=== PATIENT | male | born 1960 | race Hispanic/Latino ===

== ENCOUNTER 2022-12-24 08:05 | Emergency (ER) | payer BC ==
--- NOTE | 2022-12-24 08:27 | EDPHYS ---
Physician Documentation [facility] Name: Alvarado Crow Age: 62 yrs Sex: Male : 1960 Arrival Date: 12/24/2022 Time: 08:07 Bed 9 Private MD: ED Physician Zhen Clark HPI: 12/24 08:20 This 62 yrs old Male presents to ER via Ambulatory with complaints of bs3 Numbness Of Face. 08:20 The patient's problem is reported as a facial droop, on right. Onset: The bs3 symptoms/episode began/occurred acutely. Duration: The episode is continuous. Context:. 62 y m hx of dm, htn pw right facial numbness, and weakness on right side of his mouth, noticed starting yesterday, but got worse today. He feels like he can't close his eye as tight and water is drippling out of his mouth. He has a hx of this happening remotely. NO fever or chills, difficulty breathing or swallwing. . Historical: - Allergies: 08:10 No Known Allergies; iw - PMHx: 08:11 Diabetes mellitus; iw - Immunization history:: Adult Immunizations unknown. - Social history:: Patient/guardian denies using Smoking status: unknown. ROS: 08:20 Constitutional: Negative for fever, chills bs3 08:20 All other systems are negative. Exam: 08:20 Constitutional: This is a well developed, well nourished patient who is awake, alert, bs3 and in no acute distress. Head/Face: Normocephalic, atraumatic. Eyes: Pupils equal round and reactive to light, extra-ocular motions intact. Lids and lashes normal. ENT: mmm, no posterior phyarngeal erythema Neck: Trachea midline, no thyromegaly, no neck stiffness Chest/axilla: Normal chest wall appearance and motion. Nontender with no deformity. No lesions are appreciated. Cardiovascular: Regular rate and rhythm with a normal S1 and S2. symmetric pulses in upper extremities Respiratory: Lungs have equal breath sounds bilaterally, clear to auscultation, no respiratory distress Abdomen/GI: Soft, non-tender, no rebound or guarding MS/ Extremity: Pulses equal, no cyanosis. Neurovascular intact. Full, normal range of motion. Neuro: Awake and alert, GCS 15, oriented to person, place, time, and situation. Decreased strength to the right side of his face, with facial droop, he has decreased ability to furrow his brow on this side, sensation is intact, this does not spare his forehead. He has normal strength in upper lower extremities, he can close his right eye but it is slightly weaker than the left. Psych: Awake, alert, with orientation to person, place and time. Behavior, mood, and affect are within normal limits. 08:28 CT study not indicated or reported. Reason for not performing CT: not conistent bs3 symptoms with CVA Vital Signs: 08:11 BP 182 / 73; Pulse 69; Resp 16; Temp 97.1; iw 08:38 BP 161 / 82; Pulse 61; Resp 18; Pulse Ox 100% on R/A; eh3 MDM: 08:20 Patient medically screened. bs3 08:20 Differential diagnosis: CVA, paralysis, metabolic disorder. Data reviewed: vital signs, bs3 nurses notes. I considered the following discharge prescriptions or medication management in the emergency department will give antiviral, considered tick paralysis and doxy but no exposure to ticks. . Test considered but Not performed: CT: considered ct, stroke workup but this is likely idiopathic facial paralysis as his symptoms do not spare forehead (involve it) and he has no other deficits. Administered Medications: 08:37 Drug: predniSONE 60 mg Route: PO; 3 08:46 Follow up: Response: Medication administered at discharge. 3 08:37 Drug: valACYclovir 1000 mg Route: PO; 3 08:46 Follow up: Response: Medication administered at discharge. 3 Disposition Summary: 12/24/22 08:27 Discharge Ordered Location: Home bs3 Problem: new bs3 Condition: Stable bs3 Diagnosis - Eid's palsy bs3 Followup: bs3 - With: Private Physician - When: 1 week - Reason: Re-evaluation by your physician Discharge Instructions: - Discharge Summary Sheet bs3 - Eid Palsy, Adult bs3 Forms: - Medication Reconciliation Form bs3 - Work release form eh3 - Thank You Letter bs3 - Antibiotic Education bs3 - Prescription Opioid Use bs3 Prescriptions: - valacyclovir 1 gram Oral tablet - take 1 tablet by ORAL route 3 times per day for 7 days; 21 tablet; Refills: 0, bs3 Product Selection Permitted - Prednisone 20 mg Oral Tablet - take 3 tablets by ORAL route once daily for 7 days; 21 tablet; Refills: 0, bs3 Product Selection Permitted Signatures: Angelina Wells RN RN iw Soni Kinciad RN RN eh3 Zhen Clark MD MD bs3
--- NOTE | 2022-12-24 08:27 | ER ---
Nurse's Notes [facility] Name: Alvarado Crow Age: 62 yrs Sex: Male : 1960 Arrival Date: 12/24/2022 Time: 08:07 Bed 9 Private MD: Diagnosis: Eid's palsy Presentation: 12/24 08:09 Chief complaint: Patient states: yesterday he noticed numbness in right side of mouth, iw this morning he noticed some slurred speech and facial droop on right side. Coronavirus screen: At this time, the client does not indicate any symptoms associated with coronavirus-19. Ebola Screen: Patient negative for fever greater than or equal to 101.5 degrees Fahrenheit, and additional compatible Ebola Virus Disease symptoms Patient denies exposure to infectious person. Patient denies travel to an Ebola-affected area in the 21 days before illness onset. No symptoms or risks identified at this time. Initial Sepsis Screen: Does the patient meet any 2 criteria? No. Patient's initial sepsis screen is negative. Does the patient have a suspected source of infection? No. Patient's initial sepsis screen is negative. Risk Assessment: Do you want to hurt yourself or someone else? Patient reports no desire to harm self or others. Onset of symptoms was December 23, 2022. 08:09 Method Of Arrival: Ambulatory iw 08:09 Acuity: PADDY 3 iw Triage Assessment: 08:39 General: Appears in no apparent distress. comfortable, Behavior is calm, cooperative, eh3 appropriate for age. Historical: - Allergies: 08:10 No Known Allergies; iw - PMHx: 08:11 Diabetes mellitus; iw - Immunization history:: Adult Immunizations unknown. - Social history:: Patient/guardian denies using Smoking status: unknown. Screenin:38 [facility] ED Fall Risk Assessment (Adult) Score/Fall Risk Level 0 - 2 = Low Risk. Abuse eh3 screen: Denies threats or abuse. Denies injuries from another. Nutritional screening: No deficits noted. Tuberculosis screening: No symptoms or risk factors identified. Assessment: 08:38 General: Appears in no apparent distress. comfortable. General: Behavior is calm, eh3 cooperative, appropriate for age. Pain: Denies pain. Neuro: Level of Consciousness is awake, alert, obeys commands, Oriented to person, place, time, situation. Neuro: Moves all extremities. Gait is steady, Speech is normal, Facial droop on right, Pupils are PERRLA, Intact. Cardiovascular: Capillary refill < 3 seconds Patient's skin is warm and dry. Respiratory: Airway is patent Respiratory effort is even, unlabored, Respiratory pattern is regular, symmetrical. GI: No signs and/or symptoms were reported involving the gastrointestinal system. Abdomen is round non-distended. : No signs and/or symptoms were reported regarding the genitourinary system. EENT: No signs and/or symptoms were reported regarding the EENT system. Derm: No signs and/or symptoms reported regarding the dermatologic system. Skin is pink, warm \T\ dry. Musculoskeletal: No signs and/or symptoms reported regarding the musculoskeletal system. Circulation, motion, and sensation intact. Range of motion: intact in all extremities. Vital Signs: 08:11 BP 182 / 73; Pulse 69; Resp 16; Temp 97.1; iw 08:38 BP 161 / 82; Pulse 61; Resp 18; Pulse Ox 100% on R/A; eh3 ED Course: 08:07 Patient arrived in ED. as 08:09 Zhen Clark MD is Attending Physician. bs3 08:10 Triage completed. iw 08:12 Arm band placed on. iw 08:28 Soni Kincaid, SNEHA is Primary Nurse. eh3 08:38 Patient has correct armband on for positive identification. Bed in low position. Call eh3 light in reach. 08:38 No provider procedures requiring assistance completed. Patient did not have IV access eh3 during this emergency room visit. Administered Medications: 08:37 Drug: predniSONE 60 mg Route: PO; eh3 08:46 Follow up: Response: Medication administered at discharge. eh3 08:37 Drug: valACYclovir 1000 mg Route: PO; eh3 08:46 Follow up: Response: Medication administered at discharge. eh3 Medication: 08:39 VIS not applicable for this client. eh3 Outcome: 08:27 Discharge ordered by . bs3 08:38 Discharged to home ambulatory. eh3 08:38 Condition: stable 08:38 Discharge instructions given to patient, Instructed on discharge instructions, follow up and referral plans. medication usage, Demonstrated understanding of instructions, follow-up care, medications, Prescriptions given X 2. 08:39 Patient left the ED. eh3 Signatures: Carmela Roe Irene, RN RN Soni Kincaid RN RN [facility] Zhen Clark MD MD bs3 Corrections: (The following items were deleted from the chart) 08:44 08:28 BP 161 / 82; Pulse 61bpm; Resp 18bpm; Pulse Ox 100% RA; [place] [id number] 08:46 08:38 Pain: Denies pain. [place] [id number]
[2022-12-24] MEDS ORDERED: predniSONE 20 MG TAB ONE (08:36)
[2022-12-24] MEDS ORDERED: VALACYCLOVIR 500 MG TAB ONE (08:38)
[2022-12-24 08:44] VITALS: BP 182/73; TEMP 97.1
== END 2022-12-24 08:39 | disposition home or self-care (01) ==
LOC: ER 08:05
DX: G51.0 Bell's palsy (principal); E11.9 Type 2 diabetes mellitus without complications
CPT/HCPCS: 99283; J7512